=== PATIENT | female | born 1960 | race Caucasian/White ===

== ENCOUNTER → 2018-12-21 | Outpatient (CLI) | payer OTHER ==
[~2018-12-21] MED LIST: CATHETER FLUSH 10 ML SYR IV PRN; HOLD METFORMIN - RECEIVED CONTRAST 20 ML VIAL IV SCH; IOHEXOL 350 MG/ML 100 ML (OMNIPAQUE 350) VIAL IV ONE; NS 100 ML (IVPB) BAG IV ONE
--- NOTE | 2018-12-21 13:35 | Diagnostic Imaging Report ---
INDICATION: Bilateral flank pain and mid abdominal pain. CT abdomen and pelvis obtained with pre and post IV contrast images. There is no prior study for comparison. Visualized portions of the lung bases are clear except for calcified granuloma in the left base and some mild dependent atelectatic change. There is no pleural fluid or free intraperitoneal air. The liver shows no focal lesion. Gallbladder is unremarkable. The spleen, adrenals, and pancreas appear normal. Kidneys bilaterally show no radiopaque stones or hydronephrosis. There are scattered small cysts in both kidneys. There is no retroperitoneal mass or adenopathy. There is no ascites or abnormal fluid collection. Visualized bowel loops show no sign of obstruction. There is no pelvic mass. Patient appears to be status post hysterectomy. Incidental note is made of a diffusely prominent inferior mesenteric vein. 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 There is a prominent azygos and hemiazygos vein. There appear to be chronic compression deformities of L2 and L3. IMPRESSION: Multiple small cysts are visualized in both kidneys. There is no renal stone or hydronephrosis. There is no abdominal mass or abnormal fluid collection. There is no acute focal inflammatory process. Dictated by: Dictated on workstation # [id number]
== END ==
LOC: RAD FS 11:27
PROVIDERS: ATTEND Nurse Practitioner Family
DX: N28.1 Cyst of kidney, acquired (principal)
CPT/HCPCS: 74178

== ENCOUNTER → 2020-04-24 | Outpatient (CLI) | payer MEDICARE, OTHER ==
[2020-04-24 18:45] LABS: BILIRUBIN,URINE NEGATIVE (NEGATIVE); CLARITY,URINE SL CLOUDY; COLOR,URINE YELLOW; GLUCOSE, URINE (UA) NEGATIVE (NEGATIVE); KETONES,URINE NEGATIVE (NEGATIVE); LEUKOCYTE ESTERASE ,URINE TRACE (NEGATIVE); NITRITE,URINE NEGATIVE (NEGATIVE); PROTEIN,URINE TRACE (NEGATIVE)
[2020-04-24 18:56] LABS: BACTERIA,URINE TRACE /HPF; RBC,URINE >100 /HPF
== END ==
LOC: LABNPT 18:38
PROVIDERS: ATTEND Family Medicine
DX: R30.0 Dysuria (principal); R35.0 Frequency of micturition
CPT/HCPCS: 81000; 87088